=== PATIENT | female | born 1950 | race Caucasian/White ===

== ENCOUNTER 2022-09-30 15:47 | Outpatient (REF) | payer OTHER, SELFPAY ==
[2022-09-30 18:02] LABS: C Reactive Protein 0.08 mg/dL (< or = 0.50)
[2022-09-30 18:12] LABS: Erythrocyte Sedimentation Rate 51 MM/HR (0-20)
[2022-10-02 16:14] LABS: Anti Nuclear Antibody Screen NEGATIVE (NEGATIVE)
[2022-10-06 13:03] LABS: Anti DNA DS Antibody 2 IU/mL; SM/Ribonucleoprotein Ab <1.0 NEG AI (<1.0 NEG); Smith Protein <1.0 NEG AI (<1.0 NEG)
== END 2022-09-30 15:48 | disposition home or self-care (01) ==
LOC: HO.LAB 15:47
PROVIDERS: Visit Provider Psychiatry & Neurology Neurology
DX: G61.81 Chronic inflammatory demyelinating polyneuritis (principal)
CPT/HCPCS: 36415; 85652; 86038; 86039; 86140; 86225; 86235